=== PATIENT | male | born 1955 | race Caucasian/White ===

== ENCOUNTER 2016-07-29 19:58 | Emergency (ER) | payer OTHER ==
[~2016-07-29] VITALS: Ht 167.6 cm; Wt 68.8 kg
[~2016-07-29 19:58] MED LIST: ALEVE220 MG PO; ATORVASTATIN CA40 MG PO; CHOLESTYRAMINE210 GM PO; LEVAQUIN500 MG PO; LISINOPRIL2.5 MG PO; METFORMIN HCL500 MG PO; NITROSTAT0.4 MG SL; NORCO 7.5/321 TABLET PO; PERCOCET 5/31 TABLET PO; PLAVIX75 MG PO; PROTONIX40 MG PO; TOPROL XL25 MG PO; TRAZODONE; TRAZODONE HCL150 MG PO; WELLBUTRIN XL300 MG PO; ZOFRAN4 MG PO
[2016-07-29 20:36] LABS: BASOPHIL COUNT 0.1 K/uL (0-0.1); EOSINOPHIL COUNT 0.4 K/uL (0-0.3); HEMATOCRIT 39.3 % (38.0-50.0); IMMATURE GRANULOCYTE (%) 0.4 % (0.0-0.7); INSTRUMENT ABS NEUTROPHIL CT 4.7 K/uL; LYMPHOCYTE COUNT 2.7 K/uL (1.0-2.8); MCH 27.1 PG (29.0-34.0); MCHC 32.3 G/DL (30.0-36.0); MCV 83.8 FL (86-99); MEAN PLAT.VOLUME 8.3 uM^3 (9.0-12.4); MONOCYTE (%) 7.5 % (3-12); MONOCYTE COUNT 0.6 K/uL (0-0.8); NEUTROPHIL (%) 54.3 % (45-76); NEUTROPHIL COUNT 4.7 K/uL (1.8-6.4); PLATELET COUNT 228 K/uL (156-360); RBC DIS.WIDTH-CV 13.8 % (11.8-14.6); RBC DIS.WIDTH-SD 42.5 % (39-53); RED BLOOD COUNT 4.69 M/uL (4.00-5.50); WHITE BLOOD COUNT 8.6 K/uL (4.1-10.2)
[2016-07-29 20:43] LABS: CHLORIDE 104 mEq/L (99-109); POTASSIUM 4.7 mEq/L (3.7-5.4); SODIUM 139 mEq/L (136-147)
[2016-07-29 20:45] LABS: GLUCOSE 119 mg/dL (70-99)
[2016-07-29 20:47] LABS: ANION GAP 14 MEQ/L (2-14); TOTAL BILIRUBIN 0.4 mg/dL (0.0-1.0)
[2016-07-29 20:48] LABS: SERUM ETHYL ALCOHOL 263 mg/dL
[2016-07-29 20:49] LABS: ALKALINE PHOSPHATASE 43 IU/L (3-129); GFR ESTIMATE (CALCULATED) > 59 mL/min/
[2016-07-29 20:50] LABS: UREA NITROGEN (BUN) 22 mg/dL (9-23)
[2016-07-30] MEDS ORDERED: DETROL LA2 MG PO (00:05)
[2016-07-30 03:33] VITALS: BP 127/74
== END 2016-07-30 03:34 | disposition home or self-care (01) ==
LOC: EME → EDBD 19:58 → EME 07-30 03:34
PROVIDERS: Emergency Medicine
PROC: 09Q1XZZ Repair Left External Ear, External Approach (ICD-10-PCS; principal; 2016-07-29)
DX: F10.129 Alcohol abuse with intoxication, unspecified (principal); Y90.8 Blood alcohol level of 240 mg/100 ml or more; S01.312A Laceration without foreign body of left ear, initial encounter; W18.30XA Fall on same level, unspecified, initial encounter; K21.9 Gastro-esophageal reflux disease without esophagitis; E78.5 Hyperlipidemia, unspecified; I10 Essential (primary) hypertension; I25.2 Old myocardial infarction; I25.10 Atherosclerotic heart disease of native coronary artery without angina pectoris; Z95.1 Presence of aortocoronary bypass graft
CPT/HCPCS: 70450; 72125; 80053; 85025; 99281; 99285; G0480; J1630; J2060; J2250; J7030

== ENCOUNTER 2017-12-04 08:06 | Emergency (ER) | payer OTHER ==
[~2017-12-04] VITALS: Ht 167.6 cm; Wt 66.4 kg
[~2017-12-04 08:06] MED LIST changes: +DETROL LA2 MG PO
[2017-12-04 10:01] VITALS: BP 160/92
[2017-12-04] MEDS ORDERED: PERCOCET 5/31 TABLET PO (11:01)
== END 2017-12-04 12:22 | disposition home or self-care (01) ==
LOC: EME → EDBD 08:06 → EME 08:06
PROC: 0SSBXZZ Reposition Left Hip Joint, External Approach (ICD-10-PCS; principal; 2017-12-04)
DX: T84.021A Dislocation of internal left hip prosthesis, initial encounter (principal); S72.112A Displaced fracture of greater trochanter of left femur, initial encounter for closed fracture; W01.0XXA Fall on same level from slipping, tripping and stumbling without subsequent striking against object, initial encounter; Y92.89 Other specified places as the place of occurrence of the external cause; Z96.642 Presence of left artificial hip joint; F32.9 Major depressive disorder, single episode, unspecified; E78.5 Hyperlipidemia, unspecified; I10 Essential (primary) hypertension; I25.2 Old myocardial infarction; K21.9 Gastro-esophageal reflux disease without esophagitis; Z88.5 Allergy status to narcotic agent; I25.10 Atherosclerotic heart disease of native coronary artery without angina pectoris; Z95.1 Presence of aortocoronary bypass graft; Z79.84 Long term (current) use of oral hypoglycemic drugs; Z88.0 Allergy status to penicillin; Z88.2 Allergy status to sulfonamides
CPT/HCPCS: 73501; 73502; 73700; 99281; 99284; J3010